=== PATIENT | female | born 1945 | race American Indian/Alaskan Native ===

== ENCOUNTER 2019-06-21 08:29 | Day surgery (SDC) | payer MEDICARE, OTHER ==
[~2019-06-21] VITALS: Ht 142.2 cm; Wt 40.9 kg
[2019-06-21] VITALS (7 sets, daily range): BP systolic 83–118; BP diastolic 58–88
[~2019-06-21 08:29] MED LIST: ACET-2119 PO; ALPR0.255 PO; CHOL100046 PO; IBUP-1984 PO; OMEP-50 PO; PREG50CA PO
[2019-06-21] MEDS ORDERED: ACET-2119 PO (08:43)
[2019-06-21] MEDS ORDERED: LIDOcaine Viscous 15ml cup ONE (09:05)
[2019-06-21] MEDS ORDERED: fentaNYL/PF 50MCG/1 ML 2ML syringe ONE (09:05)
[2019-06-21] MEDS ORDERED: MIDAZolam 5mg/5ml vial ONE (09:05)
== END 2019-06-21 11:00 | disposition home or self-care (01) ==
LOC: GI LAB 08:29
PROVIDERS: ATTEND Internal Medicine Gastroenterology
DX: R13.10 Dysphagia, unspecified (principal); K20.8 Other esophagitis; K22.2 Esophageal obstruction; K31.89 Other diseases of stomach and duodenum
CPT/HCPCS: 43239; 43249; C1726; G0500; J2250; J3010; J7040; 99152; A4620

== ENCOUNTER 2019-06-27 14:09 | Emergency (ER) | payer MEDICARE, OTHER ==
[~2019-06-27] VITALS: Ht 142.2 cm; Wt 47.7 kg
[~2019-06-27 14:09] MED LIST changes: -CHOL100046 PO; -IBUP-1984 PO; -OMEP-50 PO; -PREG50CA PO
[2019-06-27 14:16] VITALS: BP 95/69
[2019-06-27] MEDS ORDERED: LIDOcaine 2% 10ml TOPICAL JELLY (Urojet) MM ONE (14:25)
[2019-06-27] MEDS ORDERED: LIDO30CR23 TOP (14:53)
[2019-06-27] MEDS ORDERED: VITS42.53 TOP (14:53)
[2019-06-27] MEDS ORDERED: LOPE2TAB25 PO (15:14)
[2019-06-27] MEDS ORDERED: loperamide 2mg capsule PO ONE (15:15)
[2019-06-27] MEDS ORDERED: LANOLIN TP SCH (21:00)
[2019-06-28] MEDS ORDERED: LIDO700A47 TOP (18:57)
[2019-06-28] MEDS ORDERED: OMEP-50 PO (18:57)
[2019-06-28] MEDS ORDERED: LOPE2CAP PO (20:34)
[2019-06-28] MEDS ORDERED: VITS42.53 TOP (20:34)
== END 2019-06-27 15:29 | disposition home or self-care (01) ==
LOC: ER 14:10
DX: L22 Diaper dermatitis (principal); R19.7 Diarrhea, unspecified; G62.9 Polyneuropathy, unspecified; R00.0 Tachycardia, unspecified; M19.90 Unspecified osteoarthritis, unspecified site; Z88.5 Allergy status to narcotic agent
CPT/HCPCS: 93005; 99284

== ENCOUNTER 2019-08-06 08:46 | Inpatient (IN) | payer MEDICARE, OTHER ==
[2019-08-06] VITALS (10 sets, daily range): BP systolic 73–107; BP diastolic 43–81
[~2019-08-06] VITALS: Ht 142.2 cm; Wt 51.8 kg
[~2019-08-06 08:46] MED LIST changes: +ALBU2.5V12 NEB; +LIDO700A47 TOP; +LOPE2CAP PO; +LYR75C PO; +MAGN400C PO; +MEGE400O4 PO; +OMEP-50 PO; +ONDA4TAB6 PO; +SERT-153 PO; +TRAM50TA2 PO; +VITS42.53 TOP
[2019-08-06] MEDS ORDERED: normal saline 1000ML IV soln IV ONE (09:10)
[2019-08-06] MEDS ORDERED: piperacillin/tazo 3.375gm/50ml 50 ML IV ONE (09:25)
[2019-08-06 09:32] LABS: BASOPHILS % (AUTO) 0.2 % (0-1); LYMPHOCYTES # (AUTO) 0.2 X10'3 (1.1-4.8); MEAN PLATELET VOLUME 7.9 FL (7.4-10.4); MONOCYTES # (AUTO) 0.2 X10'3 (0-0.9); PLATELET COUNT 165 X10'3 (140-440)
[2019-08-06 09:34] LABS: ALANINE AMINOTRANSFERASE 21 U/L (12-78); ALBUMIN 1.7 G/DL (3.4-5.0); ALBUMIN/GLOBULIN RATIO 0.3 (1.1-1.5); ALKALINE PHOSPHATASE 138 IU/L (46-116); ASPARTATE AMINO TRANSFERASE 33 U/L (10-37); BILIRUBIN,TOTAL 0.2 MG/DL (0.1-1.0); BLOOD UREA NITROGEN 30 MG/DL (7-18); BUN/CREATININE RATIO 39.5 (6.6-38.0); CHLORIDE 94 MMOL/L (99-107); CREATININE 0.76 MG/DL (0.40-0.90); EOSINOPHILS % (AUTO) 0.9 % (0-6); GLUCOSE 93 MG/DL (70-104); HEMATOCRIT 28.8 % (35.0-45.0); LYMPHOCYTES % (AUTO) 10.4 % (21-51); MEAN CORPUSCULAR HEMOGLOBIN 34.4 PG (27.0-31.0); MEAN CORPUSCULAR HGB CONC 34.8 g/dL (33.0-36.5); MONOCYTES % (AUTO) 10.6 % (2-12); NEUTROPHILS # (AUTO) 1.2 X10'3 (1.8-7.7); NEUTROPHILS % (AUTO) 77.9 % (42-75); PARTIAL THROMBOPLASTIN TIME 24 SECONDS (22-32); POTASSIUM 3.7 MMOL/L (3.5-5.1); RED BLOOD COUNT 2.91 X10'6 (4.20-5.60); RED CELL DISTRIBUTION WIDTH 19.6 % (11.5-14.5); TOTAL PROTEIN 8.5 G/DL (6.4-8.2); WHITE BLOOD COUNT 1.5 X10'3 (4.5-11.0); eGFR 74 ML/MIN
[2019-08-06 09:41] LABS: ANION GAP 5 (8-16); MAGNESIUM 1.6 MG/DL (1.5-2.4); SODIUM 127 MMOL/L (135-145); TROPONIN I 0.16 NG/ML (0.0-0.05)
[2019-08-06 10:08] LABS: CLARITY,URINE CLEAR (Clear); COLOR,URINE YELLOW (Yellow); GLUCOSE, URINE NEGATIVE (Neg); KETONES,URINE NEGATIVE (Neg); LEUKOCYTE ESTERASE ,URINE TRACE (Neg); NITRITES, URINE NEGATIVE (Neg); OCCULT BLOOD,URINE TRACE-INTACT (Neg); PROTEIN,URINE TRACE mg/dl (Neg); UROBILINOGEN,URINE 0.2 E.U/dL (0.2-1.0)
[2019-08-06 10:10] LABS: UA COLLECTION TYPE CLN CATCH MIDSTREAM
[2019-08-06 10:16] LABS: BACTERIA,URINE FEW /HPF (Neg); MUCUS STRANDS NONE SEEN /LPF (Neg); SQUAMOUS EPITHELIAL CELL,UR FEW /LPF (FEW); YEAST MODERATE /HPF (NEGATIVE)
[2019-08-06 10:23] LABS: ANISOCYTOSIS 2+; PLATELET ESTIMATE NORMAL; TOTAL CELLS COUNTED 100
[2019-08-06 10:24] LABS: ROULEAUX 2+
[2019-08-06] MEDS ORDERED: vancomycin/NS 1 GM ADD-VANTAGE 250 ML IV SCH (10:44)
[2019-08-06] MEDS ORDERED: digoxin 250mcg/ml 2ml ampule IV ONE (12:35)
[2019-08-06] MEDS ORDERED: magnesium 4gm in 100ml NS 100 ML IV PRN (12:50)
[2019-08-06] MEDS ORDERED: acetaminophen 325mg tablet PO PRN ×2 (12:50)
[2019-08-06] MEDS ORDERED: Neutra Phos packet PO PRN (12:50)
[2019-08-06] MEDS ORDERED: magnesium Cl slow-release 64mg tablet PO PRN (12:50)
[2019-08-06] MEDS ORDERED: magnesium 2GM in 50ml NS 50 ML IV PRN (12:50)
[2019-08-06] MEDS ORDERED: sodium phosphate inj. 30 MMOL in dextrose 5%-water 250 ML IV PRN (12:50)
[2019-08-06] MEDS ORDERED: potassium Cl 20 mEq SR tablet PO PRN ×2 (12:50)
[2019-08-06] MEDS ORDERED: ondansetron/PF 4mg/2ml inj IV PRN (12:50)
[2019-08-06] MEDS ORDERED: sodium phosphate inj. 15 MMOL in dextrose 5%-water 250 ML IV PRN (12:50)
--- NOTE | 2019-08-06 13:20 | NUR ---
RELIEVING RN FOR BREAK, FAMILY IS AT BEDSIDE, SUCTIONED PT'S MOUTH, SHE HAS A VERY WEAK COUGH, SCANT AMOUNT OF WHITE SUBSTANCE SUCTIONED OUT, MOVED PT UP IN BED, WAITING FOR BED ASSIGNMENT
[2019-08-06] MEDS: pantoprazole 40 MG vial IV SCH (13:41)
[2019-08-06] MEDS: hydrocortisone sod succ/PF 100mg/2ml inj. IV SCH ×2 (13:41→21:33)
[2019-08-06] MEDS: normal saline 1000ml 1,000 ML IV SCH (13:41)
[2019-08-06] MEDS: K, MAG and/or Phos replacement - Verify level? MC SCH (14:00)
[2019-08-06] MEDS: NORepinephrine 8mg/ 250ml NS 250 ML IV SCH (15:00)
--- NOTE | 2019-08-06 16:36 | NUR ---
PICC ordered stat per Dr. Berg. After speaking to family they state they refuse the central line in neck but want a PICC instead. Consent obtained from pt and family as pt is unable to sign consent herself at this time. 6f Triple lumen PICC Line placed to right brachial vein x's 1 attempt with success, tip ending in distal svc near cavoatrial junction, tip confirmation with 3cg, ok to use. GOPAL PICC CANDY Addendum: 08/06/19 at 1756 by Milla Beltran RN Exp: 03/03/2020 Lot: [id number] Ref: [id number]
[2019-08-06] MEDS: piperacillin/tazo 3.375gm/50ml 50 ML IV SCH (16:44)
[2019-08-06] MEDS ORDERED: acetaminophen 325mg/10.15ml oral unit dose solution PO PRN (17:32)
[2019-08-06] MEDS: acetaminophen 325mg/10.15ml oral unit dose solution PO PRN (17:45)
[2019-08-06] MEDS: docusate sod 100mg capsule PO SCH (20:00)
[2019-08-06] MEDS: heparin, porcine 5000 units/ml vial SQ SCH (21:33)
[2019-08-07] VITALS (24 sets, daily range): BP systolic 103–124; BP diastolic 52–77
[2019-08-07] MEDS: piperacillin/tazo 3.375gm/50ml 50 ML IV SCH ×3 (00:38→16:52)
[2019-08-07] MEDS: acetaminophen 325mg/10.15ml oral unit dose solution PO PRN ×2 (00:50→14:07)
[2019-08-07] MEDS: hydrocortisone sod succ/PF 100mg/2ml inj. IV SCH ×4 (03:06→20:57)
[2019-08-07] MEDS: normal saline 1000ml 1,000 ML IV SCH ×3 (03:12→22:00)
[2019-08-07 05:28] LABS: BASOPHILS % (AUTO) 0.1 % (0-1); EOSINOPHILS % (AUTO) 0 % (0-6); HEMOGLOBIN 9.3 g/dl (12.0-16.0); LYMPHOCYTES # (AUTO) 0.2 X10'3 (1.1-4.8); MEAN CORPUSCULAR HEMOGLOBIN 35.7 PG (27.0-31.0); MEAN CORPUSCULAR HGB CONC 35.6 g/dL (33.0-36.5); MEAN CORPUSCULAR VOLUME 100.5 FL (78-98); MEAN PLATELET VOLUME 7.6 FL (7.4-10.4); MONOCYTES # (AUTO) 0.4 X10'3 (0-0.9); MONOCYTES % (AUTO) 4.6 % (2-12); NEUTROPHILS # (AUTO) 7.4 X10'3 (1.8-7.7); NEUTROPHILS % (AUTO) 92.3 % (42-75); PLATELET COUNT 182 X10'3 (140-440); RED BLOOD COUNT 2.59 X10'6 (4.20-5.60); RED CELL DISTRIBUTION WIDTH 19.8 % (11.5-14.5); WHITE BLOOD COUNT 8.1 X10'3 (4.5-11.0)
[2019-08-07 05:35] LABS: ANION GAP 9 (8-16); CHLORIDE 103 MMOL/L (99-107); CREATININE 0.73 MG/DL (0.40-0.90); MAGNESIUM 1.8 MG/DL (1.5-2.4); POTASSIUM 3.9 MMOL/L (3.5-5.1); SODIUM 133 MMOL/L (135-145); TOTAL CARBON DIOXIDE 20.9 MMOL/L (24-32); eGFR 78 ML/MIN
[2019-08-07 05:56] LABS: ALANINE AMINOTRANSFERASE 21 U/L (12-78); ALBUMIN 1.4 G/DL (3.4-5.0); ALBUMIN/GLOBULIN RATIO 0.2 (1.1-1.5); ALKALINE PHOSPHATASE 91 IU/L (46-116); ASPARTATE AMINO TRANSFERASE 62 U/L (10-37); BILIRUBIN,TOTAL 0.2 MG/DL (0.1-1.0); BLOOD UREA NITROGEN 24 MG/DL (7-18); BUN/CREATININE RATIO 32.9 (6.6-38.0); CALCIUM 7.4 MG/DL (8.5-10.1); GLUCOSE 117 MG/DL (70-104); PHOSPHORUS 3.2 MG/DL (2.3-4.5)
[2019-08-07 06:33] LABS: ANISOCYTOSIS 2+; PLATELET ESTIMATE NORMAL; TOTAL CELLS COUNTED 100
[2019-08-07] MEDS: docusate sod 100mg capsule PO SCH ×2 (08:00→20:00)
[2019-08-07] MEDS: K, MAG and/or Phos replacement - Verify level? MC SCH (08:00)
[2019-08-07] MEDS: pantoprazole 40 MG vial IV SCH (08:37)
[2019-08-07] MEDS: heparin, porcine 5000 units/ml vial SQ SCH ×2 (08:42→20:58)
[2019-08-07] MEDS: vancomycin/NS 1 GM ADD-VANTAGE 250 ML IV SCH (11:58)
--- NOTE | 2019-08-07 12:52 | NUR ---
PRESSURE ULCER EDUCATION: DEFINITION: A pressure ulcer is an area of skin that breaks down when you stay in one position too long. The constant pressure against the skin reduces the blood flow to that area and the affected tissue dies. CAUSES: "Being bedridden or in a wheelchair "Fragile skin "Having a chronic condition, such as diabetes or vascular disease "Inability to move certain parts of your body without assistance "Older age "Incontinence of urine or stool SYMPTOMS: "A reddened area that DOES NOT turn white when pressed on - this can be the beginning of a pressure ulcer "A blister, deep sore or a crater - these can be advanced pressure ulcers FIRST AID: "Relieve the pressure on this area "Keep the area clean and dry "Call your primary doctor if you see any of the above symptoms "DO NOT massage the area "DO NOT use a donut shaped or ring shaped pillow- these actually interfere with the blood flow and cause complications PREVENTION: "Check for pressure ulcers everyday "Change position at least every two hours to relieve pressure "Use items that help relieve pressure- pillows, sheepskin, foam padding, and powders. "Keep skin clean and dry "Eat healthy well balanced meals "Exercise daily IF YOU SEE ANY OF THESE SYMPTOMS WHILE IN THE HOSPITAL - TELL YOUR NURSE IMMEDIATELY. IF YOU SEE ANY OF THESE SYMPTOMS WHILE AT HOME OR HAVE ANY QUESTIONS OR CONCERNS ABOUT PRESSURE ULCERS - CALL YOUR PRIMARY DOCTOR IMMEDIATELY. Addendum: 08/07/19 at 1252 by Maryjane Gonzalez RN Amended: Links added.
--- NOTE | 2019-08-07 13:14 | NUR ---
Urine output decreased. RN informed.
--- NOTE | 2019-08-07 15:58 | NUR ---
Wound consult: pt admitted with pneumonia. Per WOC, pt presents with stage III sacral PU exacerbated by incontinence and frequent liquid stools, thoracic spine with DTI and stage I PU to right upper back. Per wt hx pt weighed 58 kg taken 12/29/18 with bedscale, current wt is 48 kg a significant 17% wt loss in 8 months. Pt documented with severe decrease in muscle strength and is with visible bitemporal muscle wasting. Pt currently meets criteria for malnutrition, MD notified. Patient's niece requests low fiber formula stating that pt with chronic diarrhea. No TF consult at this time however recommendations below are calculated to meet 100% of patient's estimated nutrient needs. LBM 2/3. Will continue to monitor. Recommendations: 1. IF TF, continuous PEG TF using Vital AF with goal rate of 45 mL/hr; to provide 1080ml fluid, 1296kcals, 875ml free water, and 81g protein. Initiate at 20ml/hr and advance 20ml Q8 to goal as tolerated. 2. additional water flushes per MD given low serum Na 3. bowel care as needed 4. weight per rx 5. pt may benefit from MVI with minerals to support wound healing Addendum: 08/07/19 at 1559 by Wing Edwige AMBROSE Amended: Links added. Addendum: 08/07/19 at [address] ARNOL agree with note
--- NOTE | 2019-08-07 18:30 | NUR ---
Patient in room CICU 2010. I have received report from Art RN and had the opportunity to ask questions and assume patient care. Patient resting comfortably in bed with eyes closed, respirations even and unlabored. Vitals WNL except for HR in sinus tachycardia in 110s. BP 102/60, all vasopressors currently off. Will continue to monitor patient closely.
[2019-08-07] MEDS: NORepinephrine 8mg/ 250ml NS 250 ML IV SCH (18:47)
[2019-08-08] VITALS (24 sets, daily range): BP systolic 104–129; BP diastolic 65–83
[2019-08-08] MEDS: piperacillin/tazo 3.375gm/50ml 50 ML IV SCH ×4 (00:14→23:44)
[2019-08-08] MEDS: hydrocortisone sod succ/PF 100mg/2ml inj. IV SCH ×3 (02:21→13:22)
[2019-08-08] MEDS: normal saline 1000ml 1,000 ML IV SCH ×2 (04:50→18:46)
--- NOTE | 2019-08-08 06:38 | NUR ---
Problems reprioritized. Patient report given, questions answered & plan of care reviewed with Stephanie GUPTA.
--- NOTE | 2019-08-08 06:39 | NUR ---
Problems reprioritized. Patient report given, questions answered & plan of care reviewed with Stephanie GUPTA.
[2019-08-08] MEDS: docusate sod 100mg capsule PO SCH (08:00)
[2019-08-08] MEDS: K, MAG and/or Phos replacement - Verify level? MC SCH (08:00)
[2019-08-08 08:25] LABS: BASOPHILS % (AUTO) 0.1 % (0-1); EOSINOPHILS % (AUTO) 0 % (0-6); HEMOGLOBIN 9.2 g/dl (12.0-16.0); LYMPHOCYTES # (AUTO) 0.3 X10'3 (1.1-4.8); LYMPHOCYTES % (AUTO) 2.8 % (21-51); MEAN CORPUSCULAR HEMOGLOBIN 33.8 PG (27.0-31.0); MEAN CORPUSCULAR VOLUME 99.5 FL (78-98); MEAN PLATELET VOLUME 7.5 FL (7.4-10.4); MONOCYTES # (AUTO) 0.4 X10'3 (0-0.9); MONOCYTES % (AUTO) 4.7 % (2-12); NEUTROPHILS # (AUTO) 8.6 X10'3 (1.8-7.7); NEUTROPHILS % (AUTO) 92.4 % (42-75); PLATELET COUNT 181 X10'3 (140-440); RED BLOOD COUNT 2.72 X10'6 (4.20-5.60); WHITE BLOOD COUNT 9.3 X10'3 (4.5-11.0)
[2019-08-08] MEDS: pantoprazole 40 MG vial IV SCH (08:50)
[2019-08-08] MEDS: heparin, porcine 5000 units/ml vial SQ SCH ×2 (08:55→20:04)
[2019-08-08 08:56] LABS: ANISOCYTOSIS 2+; PLATELET ESTIMATE NORMAL
[2019-08-08 09:03] LABS: POLYCHROMASIA FEW
[2019-08-08 09:11] LABS: ALANINE AMINOTRANSFERASE 22 U/L (12-78); ALBUMIN 1.5 G/DL (3.4-5.0); ALBUMIN/GLOBULIN RATIO 0.2 (1.1-1.5); ALKALINE PHOSPHATASE 74 IU/L (46-116); ANION GAP 8 (8-16); ASPARTATE AMINO TRANSFERASE 27 U/L (10-37); BILIRUBIN,TOTAL 0.2 MG/DL (0.1-1.0); BLOOD UREA NITROGEN 33 MG/DL (7-18); CALCIUM 7.8 MG/DL (8.5-10.1); CHLORIDE 106 MMOL/L (99-107); GLUCOSE 121 MG/DL (70-104); MAGNESIUM 2.1 MG/DL (1.5-2.4); PHOSPHORUS 2.6 MG/DL (2.3-4.5); POTASSIUM 3.5 MMOL/L (3.5-5.1); SODIUM 137 MMOL/L (135-145); TOTAL CARBON DIOXIDE 23.5 MMOL/L (24-32); TOTAL PROTEIN 8.1 G/DL (6.4-8.2); eGFR > 90 ML/MIN
[2019-08-08] MEDS: vancomycin/NS 1 GM ADD-VANTAGE 250 ML IV SCH (11:00)
--- NOTE | 2019-08-08 11:43 | NUR ---
TF Consult: PEG feeds to start today per MD. ARNOL d/w family/caregiver regarding continuous feeds using lower fiber formula to optimize EN tolerance. Pt pending SP BSS per MD; hx stricture and unable to fully dilate all the way down to reach stomach on last GI MD visit 2 weeks prior to Jace per family at rounds. Current bed scale 49.5kg; will adjust recs as needed and continue to monitor. Wound consult: pt admitted with pneumonia. Per WOC, pt presents with stage III sacral PU exacerbated by incontinence and frequent liquid stools, thoracic spine with DTI and stage I PU to right upper back. Per wt hx pt weighed 58 kg taken 12/29/18 with bed scale, current wt is 48 kg a significant 17% wt loss in 8 months. Pt documented with severe decrease in muscle strength and is with visible bitemporal muscle wasting. Pt currently meets criteria for malnutrition, MD notified. Patient's niece requests low fiber formula stating that pt with chronic diarrhea. No TF consult at this time however recommendations below are calculated to meet 100% of patient's estimated nutrient needs. LBM 2/3. Will continue to monitor. Recommendations: 1. Continuous PEG TF using Vital AF with goal rate of 50mL/hr; to provide 1200ml fluid, 1440kcals, 972ml free water, and 90g protein. Initiate at 20ml/hr and advance 20ml Q8 to goal as tolerated. 2. additional water flushes per MD given low serum Na 3. PALB Q /; daily wts 4. bowel care as needed; monitor for EN tolerance 5. weekly wts 6. pt may benefit from MVI with minerals to support wound healing Addendum: 08/08/19 at [address] Amended: Links added.
[2019-08-08] MEDS ORDERED: lactulose 20gm/30ml cup PO PRN (12:50)
--- NOTE | 2019-08-08 18:20 | NUR ---
Patient in room CICU 2010. I have received report from Nain, and had the opportunity to ask questions and assume patient care.
[2019-08-08] MEDS: lactobacillus rhamnosus 10,000 MMU CELLS/CAPSULE PO SCH (20:00)
[2019-08-08] MEDS: docusate sodium 100mg/10ml UD cup PO SCH (20:00)
--- NOTE | 2019-08-08 20:15 | NUR ---
patient is alert, oriented, able to respond to yes or no question by nodding her head. Resting well. Her roommate is at the bedside.
[2019-08-08] MEDS: ALPRAZolam 0.25mg tablet PEG PRN (22:39)
[2019-08-09] VITALS (24 sets, daily range): BP systolic 98–144; BP diastolic 60–98
[2019-08-09 02:56] LABS: BASOPHILS % (AUTO) 0.1 % (0-1); EOSINOPHILS % (AUTO) 0 % (0-6); HEMATOCRIT 25.9 % (35.0-45.0); HEMOGLOBIN 8.7 g/dl (12.0-16.0); LYMPHOCYTES # (AUTO) 0.3 X10'3 (1.1-4.8); LYMPHOCYTES % (AUTO) 3.7 % (21-51); MEAN CORPUSCULAR HEMOGLOBIN 33.6 PG (27.0-31.0); MEAN CORPUSCULAR HGB CONC 33.6 g/dL (33.0-36.5); MEAN PLATELET VOLUME 7.5 FL (7.4-10.4); MONOCYTES # (AUTO) 0.5 X10'3 (0-0.9); MONOCYTES % (AUTO) 5.9 % (2-12); NEUTROPHILS % (AUTO) 90.3 % (42-75); PLATELET COUNT 159 X10'3 (140-440); RED BLOOD COUNT 2.59 X10'6 (4.20-5.60); RED CELL DISTRIBUTION WIDTH 20.2 % (11.5-14.5); WHITE BLOOD COUNT 7.8 X10'3 (4.5-11.0)
[2019-08-09 03:13] LABS: ALANINE AMINOTRANSFERASE 19 U/L (12-78); ALBUMIN 1.3 G/DL (3.4-5.0); ALBUMIN/GLOBULIN RATIO 0.2 (1.1-1.5); ALKALINE PHOSPHATASE 67 IU/L (46-116); ANION GAP 6 (8-16); ASPARTATE AMINO TRANSFERASE 22 U/L (10-37); BILIRUBIN,TOTAL 0.1 MG/DL (0.1-1.0); BLOOD UREA NITROGEN 34 MG/DL (7-18); BUN/CREATININE RATIO 66.7 (6.6-38.0); CALCIUM 6.8 MG/DL (8.5-10.1); CHLORIDE 113 MMOL/L (99-107); CREATININE 0.51 MG/DL (0.40-0.90); GLUCOSE 127 MG/DL (70-104); MAGNESIUM 1.8 MG/DL (1.5-2.4); PHOSPHORUS 1.5 MG/DL (2.3-4.5); SODIUM 141 MMOL/L (135-145); TOTAL CARBON DIOXIDE 22.5 MMOL/L (24-32); eGFR > 90 ML/MIN
[2019-08-09 03:19] LABS: POTASSIUM 2.7 MMOL/L (3.5-5.1)
[2019-08-09 03:32] LABS: IRON 68 UG/DL (49-151)
[2019-08-09 03:34] LABS: PREALBUMIN 72.1 MG/DL (19-36)
[2019-08-09 03:41] LABS: % IRON SATURATION 44 % (11-46); TOTAL IRON BINDING CAPACITY 154 UG/DL (259-388)
--- NOTE | 2019-08-09 03:43 | NUR ---
Lab called with critical value for Potassium of 2.7. Patient has K replacement protocol in eMAR. Charge Nurse-Veronica aware of the issue. She said no need to call the DrBj for critical value since the patient has the K replacement protocol in the eMAR.
[2019-08-09 03:47] LABS: PLATELET ESTIMATE NORMAL
[2019-08-09 03:48] LABS: ANISOCYTOSIS 2+
[2019-08-09] MEDS: potassium Cl 20mEq/100mL bag 100 ML IV PRN ×2 (03:56→05:01)
--- NOTE | 2019-08-09 05:50 | NUR ---
patient is resting well. had a small formed BM this morning. Patient responds to yes or no questions by nodding her head.
--- NOTE | 2019-08-09 06:32 | NUR ---
Problems reprioritized. Patient report given Alejandra, questions answered & plan of care reviewed with .
[2019-08-09] MEDS: pantoprazole 40 MG vial IV SCH (07:23)
[2019-08-09] MEDS: heparin, porcine 5000 units/ml vial SQ SCH ×2 (07:25→20:51)
[2019-08-09] MEDS: piperacillin/tazo 3.375gm/50ml 50 ML IV SCH ×3 (07:25→23:52)
[2019-08-09] MEDS: K and/or MAG REPLACEMENT MC SCH (07:26)
[2019-08-09] MEDS: normal saline 1000ml 1,000 ML IV SCH ×2 (07:30→20:50)
[2019-08-09] MEDS: docusate sodium 100mg/10ml UD cup PO SCH (07:34)
[2019-08-09] MEDS: K, MAG and/or Phos replacement - Verify level? MC SCH (08:00)
[2019-08-09] MEDS: lactobacillus rhamnosus 10,000 MMU CELLS/CAPSULE PO SCH ×2 (08:54→20:50)
[2019-08-09] MEDS: acetaminophen 325mg/10.15ml oral unit dose solution PO PRN (08:55)
[2019-08-09] MEDS ORDERED: acetaminophen 325mg/10.15ml oral unit dose solution PEG PRN ×2 (09:53)
[2019-08-09] MEDS ORDERED: lactulose 20gm/30ml cup PEG PRN (09:54)
[2019-08-09] MEDS ORDERED: Neutra Phos packet PEG PRN (09:54)
[2019-08-09] MEDS ORDERED: POTASSIUM BICARB 20meq eff tab 20 MEQ TABLET.EFF PEG PRN (09:55)
[2019-08-09] MEDS ORDERED: VANCOMYCIN LEVEL IV ONE (10:30)
[2019-08-09] MEDS: vancomycin/NS 1 GM ADD-VANTAGE 250 ML IV SCH (11:37)
[2019-08-09] MEDS: ALPRAZolam 0.25mg tablet PEG PRN (14:25)
--- NOTE | 2019-08-09 15:15 | NUR ---
New orders from Dr. Berg to place pt of Digoxin 250mcg q. 6hrs, digoxin lab after treatment, and place in digoxin 125mcg every other day after 250mcg treatment.
[2019-08-09] MEDS: digoxin 250mcg/ml 2ml ampule IV SCH ×2 (15:16→20:51)
--- NOTE | 2019-08-09 15:20 | NUR ---
Per pt deterioration and Dr. Berg make aware of pts mental status, new orders for ABGs, CRX, and placing pt on BiPAP was placed. Addendum: 08/09/19 at 1825 by Lila Simmons RN KOSTAR
[2019-08-09 15:55] LABS: ABG BASE EXCESS -7.2 mmol/L (-2.0-3.0); ABG HCO3 19.6 mmol/L (22.0-26.0); ABG OXYGEN SATURATION 97.4 % (95-98); ABG PCO2 (T) 46.8 mmHg (35.0-45.0); ABG PH (T) 7.246 (7.350-7.450); ABG PO2 (T) 112.7 mmHg (83-108); ALLEN'S TEST POSITIVE; FCOHb 0.1 % (0.5-1.5); FMetHb 0.2 % (0.3-1.12); FO2Hb 97.1 % (94-100); PATIENT TEMPERATURE 38.1; RESPIRATORY RATE 14 b/min; TIDAL VOLUME 426 mL; TOTAL HEMOGLOBIN 12.5 G/dl (12.0-16.0)
--- NOTE | 2019-08-09 16:00 | NUR ---
Problems reprioritized. Patient report given, questions answered & plan of care reviewed with CANDY Rosado.
[2019-08-09] MEDS ORDERED: furosemide 10 MG/1 ML 10ml inj IV ONE (16:05)
--- NOTE | 2019-08-09 16:30 | NUR ---
Assuming care of this patient. Report received. MD Berg at bedside due to change in status- patient is unresponsive, RR increased, with gaspy breathing, O2 saturations 88 percent. BIPAP begun by RT at bedside, with improvement in oxygenation. Per MD continue BIPAP at this time. Amio drip started , Bicarb drip begun per MD after ABG results.
--- NOTE | 2019-08-09 16:45 | NUR ---
MD Berg aware of patient's neuro status at this time.
[2019-08-09] MEDS: amiodarone/D5 360MG/200ML BAG 200 ML IV SCH ×2 (16:54→22:42)
[2019-08-09] MEDS: sodium bicarbonate (8.4%) inj. 75 MEQ in dextrose 5% water 500ml 500 ML IV SCH ×2 (16:55→22:04)
[2019-08-09] MEDS: docusate sodium 100mg/10ml UD cup PEG SCH (20:00)
[2019-08-09] MEDS ORDERED: dextrose 50%-water 50ml dispensing syringe IV PRN ×2 (20:05)
[2019-08-09] MEDS ORDERED: glucagon, human recombinant 1mg kit SUBCUT PRN (20:05)
[2019-08-09] MEDS ORDERED: dextrose ORAL solution 15 GM/59 ML bottle PO PRN ×2 (20:05)
[2019-08-09] MEDS ORDERED: insulin glargine (Lantus) pen - multi-dose SQ SCH (21:00)
[2019-08-09] MEDS: insulin regular, human vial - multi-dose SQ SCH (22:12)
[2019-08-10] VITALS (16 sets, daily range): BP systolic 70–110; BP diastolic 37–70
[2019-08-10] MEDS: digoxin 250mcg/ml 2ml ampule IV SCH ×2 (02:06→08:53)
[2019-08-10] MEDS: insulin regular, human vial - multi-dose SQ SCH (02:09)
[2019-08-10 03:37] LABS: BASOPHILS % (AUTO) 0.1 % (0-1); EOSINOPHILS % (AUTO) 0.1 % (0-6); HEMATOCRIT 26.9 % (35.0-45.0); HEMOGLOBIN 9.1 g/dl (12.0-16.0); LYMPHOCYTES # (AUTO) 0.5 X10'3 (1.1-4.8); LYMPHOCYTES % (AUTO) 8.8 % (21-51); MEAN CORPUSCULAR HEMOGLOBIN 33.8 PG (27.0-31.0); MEAN CORPUSCULAR HGB CONC 33.8 g/dL (33.0-36.5); MEAN CORPUSCULAR VOLUME 100.1 FL (78-98); MEAN PLATELET VOLUME 7.5 FL (7.4-10.4); MONOCYTES # (AUTO) 0.4 X10'3 (0-0.9); MONOCYTES % (AUTO) 8.6 % (2-12); NEUTROPHILS # (AUTO) 4.3 X10'3 (1.8-7.7); NEUTROPHILS % (AUTO) 82.4 % (42-75); PLATELET COUNT 172 X10'3 (140-440); RED BLOOD COUNT 2.69 X10'6 (4.20-5.60); RED CELL DISTRIBUTION WIDTH 19.8 % (11.5-14.5); WHITE BLOOD COUNT 5.2 X10'3 (4.5-11.0)
[2019-08-10] MEDS: sodium bicarbonate (8.4%) inj. 75 MEQ in dextrose 5% water 500ml 500 ML IV SCH (03:38)
[2019-08-10 03:46] LABS: ALANINE AMINOTRANSFERASE 30 U/L (12-78); ALBUMIN 1.5 G/DL (3.4-5.0); ALBUMIN/GLOBULIN RATIO 0.2 (1.1-1.5); ALKALINE PHOSPHATASE 88 IU/L (46-116); ANION GAP 6 (8-16); ASPARTATE AMINO TRANSFERASE 32 U/L (10-37); BILIRUBIN,TOTAL 0.2 MG/DL (0.1-1.0); BLOOD UREA NITROGEN 34 MG/DL (7-18); BUN/CREATININE RATIO 56.7 (6.6-38.0); CALCIUM 7.4 MG/DL (8.5-10.1); CHLORIDE 107 MMOL/L (99-107); GLUCOSE 163 MG/DL (70-104); MAGNESIUM 1.7 MG/DL (1.5-2.4); PHOSPHORUS 1.9 MG/DL (2.3-4.5); SODIUM 142 MMOL/L (135-145); TOTAL CARBON DIOXIDE 29.1 MMOL/L (24-32); TOTAL PROTEIN 7.8 G/DL (6.4-8.2); eGFR > 90 ML/MIN
[2019-08-10] MEDS: POTASSIUM BICARB 20meq eff tab 20 MEQ TABLET.EFF PEG PRN ×2 (03:54→13:12)
[2019-08-10 03:56] LABS: HEMOGLOBIN A1C 5.1 % (4.5-6.2)
[2019-08-10 04:42] LABS: PLATELET ESTIMATE NORMAL
[2019-08-10 04:43] LABS: ANISOCYTOSIS 2+
[2019-08-10] MEDS ORDERED: NORepinephrine 8mg/ 250ml NS 250 ML IV PRN ×2 (06:05→08:51)
--- NOTE | 2019-08-10 06:23 | NUR ---
Patient in room CICU 2010. I have received report from CANDY Pink and had the opportunity to ask questions and assume patient care.
[2019-08-10] MEDS: piperacillin/tazo 3.375gm/50ml 50 ML IV SCH (07:51)
[2019-08-10] MEDS: docusate sodium 100mg/10ml UD cup PEG SCH (08:00)
[2019-08-10] MEDS: K, MAG and/or Phos replacement - Verify level? MC SCH (08:00)
[2019-08-10] MEDS: K and/or MAG REPLACEMENT MC SCH (08:00)
[2019-08-10] MEDS: pantoprazole 40 MG vial IV SCH (08:38)
[2019-08-10] MEDS: lactobacillus rhamnosus 10,000 MMU CELLS/CAPSULE PO SCH (08:38)
[2019-08-10] MEDS: heparin, porcine 5000 units/ml vial SQ SCH (08:38)
--- NOTE | 2019-08-10 13:26 | NUR ---
250cc residual reported to Dr Zhao. Will hold TF for 2hours and recheck
--- NOTE | 2019-08-10 15:54 | NUR ---
pt @ 1318 heart rythym in asystole with family at bedside. Dr Zhao notified. donor network notified, Network are unable to consider her for donor r/t hx cancer. Family chose to use [facility]. They were notified. Family reassured to take as much time as they needed and A&D will sheepskin pickler when ready. Addendum: 08/11/19 at 1200 by Karen Jerome RN @1518 TIME OF PASSING WAS @[id number]
[2019-08-10] MEDS ORDERED: amox tr/clav. pot 400mg/5ml 100ml suspension PO SCH (17:30)
--- NOTE | 2019-08-10 18:32 | NUR ---
Family is still present- son just arrived from [place]. They will let CANDY Pink know when they are ready to call [facility].
--- NOTE | 2019-08-10 19:20 | NUR ---
jennifer picked up patient at 190
[2019-08-13] MEDS ORDERED: VANCOMYCIN LEVEL IV ONE (10:30)
== END 2019-08-10 15:18 | disposition expired | DRG 871 ==
LOC: ER 08:47 → ED HOLD 12:50 → CICU 2S 14:29
PROC: 02HV33Z Insertion of Infusion Device into Superior Vena Cava, Percutaneous Approach (ICD-10-PCS; 2019-08-06)
PROC: B548ZZA Ultrasonography of Superior Vena Cava, Guidance (ICD-10-PCS; 2019-08-06)
PROC: 5A09357 Assistance with Respiratory Ventilation, Less than 24 Consecutive Hours, Continuous Positive Airway Pressure (ICD-10-PCS; principal; 2019-08-09)
PROC: 5A09357 Assistance with Respiratory Ventilation, Less than 24 Consecutive Hours, Continuous Positive Airway Pressure (ICD-10-PCS; 2019-08-10)
DX: A41.9 Sepsis, unspecified organism (principal); J69.0 Pneumonitis due to inhalation of food and vomit; L89.153 Pressure ulcer of sacral region, stage 3; J96.00 Acute respiratory failure, unspecified whether with hypoxia or hypercapnia; G93.40 Encephalopathy, unspecified; E46 Unspecified protein-calorie malnutrition; E87.1 Hypo-osmolality and hyponatremia; E87.2 Acidosis; D64.9 Anemia, unspecified; I46.9 Cardiac arrest, cause unspecified; F32.9 Major depressive disorder, single episode, unspecified; G62.9 Polyneuropathy, unspecified; G89.29 Other chronic pain; L89.111 Pressure ulcer of right upper back, stage 1; K21.9 Gastro-esophageal reflux disease without esophagitis; M19.90 Unspecified osteoarthritis, unspecified site; M54.9 Dorsalgia, unspecified; I48.91 Unspecified atrial fibrillation; M06.9 Rheumatoid arthritis, unspecified; R13.10 Dysphagia, unspecified; R65.20 Severe sepsis without septic shock; Z66 Do not resuscitate; Z85.72 Personal history of non-Hodgkin lymphomas; Z87.01 Personal history of pneumonia (recurrent); Z92.21 Personal history of antineoplastic chemotherapy; Z88.5 Allergy status to narcotic agent; Z88.2 Allergy status to sulfonamides; Z68.25 Body mass index [BMI] 25.0-25.9, adult; Z79.899 Other long term (current) drug therapy
CPT/HCPCS: 36415; 36573; 36600; 71045; 74018; 76937; 80053; 80202; 81001; 82607; 82803; 82948; 83036; 83540; 83550; 83605; 83735; 83880; 84100; 84132; 84134; 84145; 84443; 84484; 85018; 85025; 85610; 85730; 87040; 87081; 87088; 89055; 93005; 93308; 94660; 94760; 96365; 96375; 97110; 97161; 97530; 99285; C9113; G0378; J1160; J1644; J1720; J1815; J1940; J2405; J2543; J3370; J3480; J7030; J7060